=== PATIENT | male | born 1980 | race Two or more races ===

== ENCOUNTER 2018-01-05 22:12 | Emergency (ER) | payer SELFPAY ==
[~2018-01-05] VITALS: Ht 172.7 cm; Wt 68.0 kg
[2018-01-05 22:15] VITALS: BP 131/85
--- NOTE | 2018-01-06 01:54 | Emergency Room Report ---
History of Present Illness General Chief Complaint: Alcohol Intoxication Source: Patient Present Illness HPI Patient presents with reports of alcohol ingestion Patient himself initially was somewhat arousable and did admit to drinking alcohol over soon becomes more somnolent Paramedics denies any trauma at the scene History of present illness is mildly limited as the patient awakens for minimal questioning but soon after falls asleep There was no reports of any vomiting at the scene patient at this time denies any chest pain Patient History Limited by: medical condition Past Medical History: see triage record Pertinent Family History: none Reviewed Nursing Documentation: PMH: Agreed; PSxH: Agreed Nursing Documentation-PM Past Medical History: No Stated History Review of Systems All Other Systems: limited - Other than the ones mentioned in the history of present illness all others are reviewed however they do stay limited due to the patient's mental status Physical Exam Vital Signs Date Time Temp Pulse Resp B/P (MAP) Pulse Ox O2 Delivery O2 Flow Rate FiO2 01/05/18 22:03 95 20 131/85 98 Room Air Sp02 EP Interpretation: reviewed, normal General Appearance: no apparent distress - However mildly disheveled Head: normocephalic, atraumatic Eyes: bilateral eye PERRL, bilateral eye EOMI ENT: normal pharynx, no angioedema Neck: supple Respiratory: lungs clear Cardiovascular #1: regular rate, rhythm Gastrointestinal: non tender, soft, no mass Musculoskeletal: other - Patient awakens minimally, moves all extremities without focal deficit Neurologic: other - Patient responsive to physical and verbal stimuli, however becomes somnolent and resting soon after Skin: normal color, no rash Lymphatic: no adenopathy Medical Decision Making Diagnostic Impression: Primary Impression: Alcohol abuse ER Course Patient does have high order of alcohol on his breath as well At this time admits to drinking alcohol Patient is responsive maintaining appropriate airway No obvious focality is seen and patient has no other obvious scalp hematoma or trauma patient is allowed to rest further and pending further sobering After prolonged observation in the morning time patient has awakened Reports that he had drank alcohol heavily last night However at this time feels significantly improved patient is speaking clearly ambulating appropriately And reports that he will be taking the bus home Last Vital Signs Date Time Temp Pulse Resp B/P (MAP) Pulse Ox O2 Delivery O2 Flow Rate FiO2 01/05/18 22:03 95 20 131/85 98 Room Air Status: improved Disposition: HOME, SELF-CARE Condition: Improved Referrals: NOT CHOSEN [facility],REFERRING (PCP) Additional Instructions: Patient is provided with the discharge instructions notified to follow up with primary doctor in the next 2-3 days otherwise return to the er with any worsening symptoms. Please note that this report is being documented using [employer] technology. This can lead to erroneous entry secondary to incorrect interpretation by the dictating instrument. Karen Worrell DO Jan 06, 2018 01:54
[2018-01-06 06:05] VITALS: BP 131/85
== END 2018-01-06 06:50 | disposition home or self-care (01) ==
LOC: EDBD 22:12 → EMR 22:48
DX: F10.10 Alcohol abuse, uncomplicated (principal)
CPT/HCPCS: 99282

== ENCOUNTER 2018-01-07 01:12 | Emergency (ER) | payer MEDICAID ==
[~2018-01-07] VITALS: Ht 172.7 cm; Wt 68.0 kg
[2018-01-07 01:24] VITALS: BP 144/100
--- NOTE | 2018-01-07 04:00 | Emergency Room Report ---
History of Present Illness General Chief Complaint: Alcohol Intoxication Source: Patient Present Illness HPI Patient present by paramedics for sleeping on the street Am told by nursing staff and hospital staff that the patient was just recently disposition from the hospital He was also dispositioned earlier in the morning on the on my shift However this appears to be a second visit earlier in the evening I do not see it on his current medical records however Patient is awake at this time he appears significantly more sober than his initial presentation yesterday Patient is awake and reports that he was drinking earlier today Allergies: Coded Allergies: No Known Allergies (Unverified , 01/07/18) Patient History Past Medical History: see triage record Pertinent Family History: none Reviewed Nursing Documentation: PMH: Agreed; PSxH: Agreed Nursing Documentation-PMH Past Medical History: No Stated History Review of Systems All Other Systems: negative except mentioned in HPI Physical Exam Vital Signs Date Time Temp Pulse Resp B/P (MAP) Pulse Ox O2 Delivery O2 Flow Rate FiO2 01/07/18 01:15 98.5 100 18 144/100 98 Room Air 98.4 Sp02 EP Interpretation: reviewed, normal General Appearance: well appearing, no apparent distress Head: normocephalic, atraumatic Eyes: bilateral eye PERRL, bilateral eye EOMI ENT: hearing grossly normal, normal pharynx, TMs + canals normal, uvula midline Neck: full range of motion, supple, no meningismus, no bony tend Respiratory: lungs clear, normal breath sounds, no rhonchi, no respiratory distress, no retraction, no accessory muscle use Cardiovascular #1: normal peripheral pulses, regular rate, rhythm, no edema, no gallop, no JVD, no murmur Gastrointestinal: normal bowel sounds, non tender, soft, no mass, no organomegaly, non-distended, no guarding, no hernia, no pulsatile mass, no rebound Genitourinary: no CVA tenderness Musculoskeletal: normal inspection Neurologic: oriented x3, responsive, logistics system engineer III-XII nml as tested, motor strength/ tone normal, sensory intact Psychiatric: mood/affect normal Skin: normal color, no rash, warm/dry, palpation normal Lymphatic: normal inspection, no adenopathy Medical Decision Making Diagnostic Impression: Primary Impression: Alcohol abuse ER Course Given the patient's GCS 15 Awake and alert status Patient is allowed to rest He also admits to drinking alcohol However there is no sign of vomiting or diarrhea And the patient is dispositioned in the morning for close outpatient follow-up Last Vital Signs Date Time Temp Pulse Resp B/P (MAP) Pulse Ox O2 Delivery O2 Flow Rate FiO2 01/07/18 01:24 98.5 100 18 144/100 98 Room Air 98.5 Status: improved Disposition: HOME, SELF-CARE Condition: Improved Referrals: [facility],REFERRING (PCP) Additional Instructions: Patient is provided with the discharge instructions notified to follow up with primary doctor in the next 2-3 days otherwise return to the er with any worsening symptoms. Please note that this report is being documented using [employer] technology. This can lead to erroneous entry secondary to incorrect interpretation by the dictating instrument. Karen Worrell DO Jan 07, 2018 04:00
[2018-01-07 04:05] VITALS: BP 125/80
[2018-01-07 05:34] VITALS: BP 125/75
== END 2018-01-07 05:39 | disposition home or self-care (01) ==
LOC: EDBD 01:12 → EMR 01:21 → EDUNIT# 01:21 → EMR 05:39
DX: F10.10 Alcohol abuse, uncomplicated (principal)
CPT/HCPCS: 99283

== ENCOUNTER 2018-01-11 09:23 | Emergency (ER) | payer MEDICAID ==
[~2018-01-11] VITALS: Ht 175.3 cm; Wt 77.1 kg
[2018-01-11 08:55] VITALS: BP 123/75
--- NOTE | 2018-01-11 10:14 | Emergency Room Report ---
History of Present Illness General Chief Complaint: Alcohol Intoxication Source: Patient, EMS Present Illness HPI This patient is well-known to [facility]. He has a history of alcohol abuse. He is brought in by EMS from the street passed out with the smell of alcohol around him. There is no other history available. Allergies: Coded Allergies: No Known Allergies (Unverified , 01/07/18) Patient History Past Medical History: none, other - ETOH abuse Social History: Reports: alcohol use Reviewed Nursing Documentation: PMH: Agreed; PSxH: Agreed Nursing Documentation-PM Past Medical History: No History, Except For Review of Systems All Other Systems: negative except mentioned in HPI Physical Exam Vital Signs Date Time Temp Pulse Resp B/P (MAP) Pulse Ox O2 Delivery O2 Flow Rate FiO2 01/11/18 08:55 98.0 87 18 123/75 96 Room Air 98.0 Sp02 EP Interpretation: reviewed, normal General Appearance: no apparent distress, non-toxic, Stupor Head: normocephalic, atraumatic Eyes: bilateral eye normal inspection, bilateral eye PERRL ENT: hearing grossly normal, normal pharynx, no angioedema, normal voice Neck: full range of motion, supple/symm/no masses Respiratory: chest non-tender, lungs clear, normal breath sounds, no respiratory distress, no retraction, no accessory muscle use, speaking full sentences Cardiovascular #1: regular rate, rhythm, no edema Gastrointestinal: normal bowel sounds, non tender, soft, non-distended, no guarding, no rebound Rectal: deferred Musculoskeletal: back normal, normal range of motion, non-tender Neurologic: responsive, sensory intact, speech normal, grossly normal Skin: normal color, no rash, warm/dry, well hydrated Medical Decision Making Diagnostic Impression: Primary Impression: Acute alcoholic intoxication ER Course This patient presents with acute alcoholic intoxication. There is no evidence of trauma or injury on physical examination of this patient. The patient was allowed to sober up in the emergency department and was able to ambulate and articulate desire to go home. The patient was clinically sober at the time of discharge. No acute emergency medical condition is identified. The patient was educated on the dangers of alcohol intoxication and abuse. The patient was given a list of the local rehabilitation clinics. Last Vital Signs Date Time Temp Pulse Resp B/P (MAP) Pulse Ox O2 Delivery O2 Flow Rate FiO2 01/11/18 08:55 90 18 132/90 94 Room Air 01/11/18 08:55 98.0 98.0 Status: improved Disposition: HOME, SELF-CARE Condition: Improved Patient Instructions: Alcohol Abuse and Nutrition, Alcohol Intoxication, Easy- to-Read Aisha Valle DO Jan 11, 2018 10:14
[2018-01-11 12:02] VITALS: BP 128/76
[2018-01-11 12:43] VITALS: BP 128/76
== END 2018-01-11 12:47 | disposition home or self-care (01) ==
LOC: EDBD 09:23 → EMR 10:26
DX: F10.129 Alcohol abuse with intoxication, unspecified (principal)
CPT/HCPCS: 99283